=== PATIENT | female | born 1985 | race Caucasian/White ===

== ENCOUNTER → 2016-10-13 | Outpatient (CLI) | payer SELFPAY ==
--- NOTE | 2016-10-13 15:15 | RADIOLOGY REPORT (SQ) ---
EXAM DESCRIPTION: U/S OB 14+ TRNABD 1GES W/O DOP COMPLETED DATE/TIME: 10/13/2016 2:28 pm REASON FOR STUDY: ENCOUNTER FOR SUPERVISION OF OTHER NORMAL , SECOND TRIMESTER Z34.82 ENCO UNTER FOR SUPRVSN OF NORMAL , SECOND TRI COMPARISON: None. TECHNIQUE: Static and Dynamic grayscale imaging performed of gravid uterus using transabdominal appr oach. Additional selected color Doppler and spectral images recorded. All stored on PACS. LIMITATIONS: None. FINDINGS: EGA: 15 weeks 2 days ANNITA: 04/04/2017 EFW: Not calculated PERCENTILE: Not applicable. Fetus less than or equal to 20 weeks gestation. LVP: 3.3 cm PLACENTA: Anterior GRADE: I PRESENTATION: Cephalic. ANATOMY: HEART RATE: 153 beats per minute. FOUR CHAMBER HEART: Visualized. THREE VESSEL CORD: Yes. CORD INSERTION: Visualized. KIDNEYS AND BLADDER: Visualized. Appear normal. STOMACH: stomach not seen. SPINE: Normal as visualized. BRAIN AND LATERAL VENTRICLES: Visualized. Appear normal. OTHER: No other significant finding. MATERNAL ADNEXA: Maternal ovaries not visualized. CERVICAL LENGTH: 3.5 cm Closed. OTHER: No other significant finding. IMPRESSION: There is a live intrauterine gestation of 15 weeks 2 days with an estimated date of deli very of 04/04/2017. anatomy is normal. The stomach was not seen. Trimester of : Second trimester - 13 weeks 1 day to 27 weeks 6 days. TECHNICAL DOCUMENTATION: JOB ID: [id number] [employer]- All Rights Reserved
== END ==
LOC: RAD 12:50
PROVIDERS: ATTEND Nurse Practitioner Women's Health
DX: Z34.82 Encounter for supervision of other normal pregnancy, second trimester (principal)
CPT/HCPCS: 76805

== ENCOUNTER 2017-03-17 09:26 | Outpatient (CLI) | payer MEDICAID ==
[2017-03-17 10:16] LABS: APPEARANCE,URINE SLIGHTLY-CLOUDY; BILIRUBIN,URINE NEGATIVE (NEGATIVE); COLOR,URINE YELLOW; GLUCOSE, URINE NEGATIVE (NEGATIVE); KETONES,URINE NEGATIVE (NEGATIVE); LEUKOCYTE ESTERASE,URINE SMALL (NEGATIVE); NITRITE,URINE NEGATIVE (NEGATIVE); PROTEIN,URINE NEGATIVE (NEGATIVE); URINE SPECIFIC GRAVITY 1.003; UROBILINOGEN,URINE NEGATIVE mg/dL (<2.0)
[2017-03-17 10:16] LABS: AMNISURE (ROM) NEGATIVE (NEGATIVE)
[2017-03-17 10:37] LABS: URINE AMPHETAMINES SCREEN NEGATIVE; URINE BARBITURATES SCREEN NEGATIVE; URINE BENZODIAZEPINES SCREEN NEGATIVE; URINE COCAINE SCREEN NEGATIVE; URINE MARIJUANA (THC) SCREEN NEGATIVE; URINE METHADONE SCREEN NEGATIVE; URINE PHENCYCLIDINE SCREEN NEGATIVE
--- NOTE | 2017-03-17 10:55 | Non Stress Test Report ---
Non Stress Test Datetime Report Generated by CPN: 03/17/2017 10:55 DEMOGRAPHIC EGA NST: 37.0 INDICATION Indication for Study: Ordered by Provider; Other Indication for Study (NST) Other: LABOR CHECK MONITORING Monitor Explained: Monitor Explained; Test Explained; Patient Verbalized Understanding Time on Monitor: 03/17/2017 09:53 Time off Monitor: 03/17/2017 10:35 NST Duration: 42 NST INTERVENTIONS NST Interventions: PO Hydration; Reposition Patient Physician Notified NST: P PARDO, CNM BABY A: [id number] BABY A Movement : Present Contraction Frequency : NONE FHR Baseline : 130 Accelerations : 15X15 Decelerations : None Variability : Moderate 6-25bpm NST Review: Meets Criteria for Reactive NST NST Review and Verified By : AALIYAH Gallagher Results: Reactive NST REPORT Report Trigger: Send Report
== END 2017-03-17 10:42 | disposition home or self-care (01) ==
LOC: LC 09:26
PROVIDERS: ATTEND Obstetrics & Gynecology
PROC: 4A1HXCZ Monitoring of Products of Conception, Cardiac Rate, External Approach (ICD-10-PCS; principal; 2017-03-17)
DX: Z36.89 Encounter for other specified antenatal screening (principal); Z3A.37 37 weeks gestation of pregnancy
CPT/HCPCS: 59025; 84112; 81005; 80307; Q0114

== ENCOUNTER 2017-03-31 09:29 | Inpatient (IN) | payer MEDICAID ==
[2017-03-31 10:00] LABS: APPEARANCE,URINE CLEAR; BILIRUBIN,URINE NEGATIVE (NEGATIVE); COLOR,URINE STRAW; GLUCOSE, URINE NEGATIVE (NEGATIVE); KETONES,URINE NEGATIVE (NEGATIVE); LEUKOCYTE ESTERASE,URINE NEGATIVE (NEGATIVE); NITRITE,URINE NEGATIVE (NEGATIVE); PROTEIN,URINE NEGATIVE (NEGATIVE); URINE SPECIFIC GRAVITY 1.001; UROBILINOGEN,URINE NEGATIVE mg/dL (<2.0)
[2017-03-31 10:23] LABS: UR PRO/CREAT RATIO RESULT 1.1 mg/mg (0.0-0.2); URINE CREATININE 14.9 mg/dL (16-327); URINE PROTEIN 15.9 mg/dL (<12)
[2017-03-31 10:27] LABS: URINE AMPHETAMINES SCREEN NEGATIVE; URINE BARBITURATES SCREEN NEGATIVE; URINE BENZODIAZEPINES SCREEN NEGATIVE; URINE COCAINE SCREEN NEGATIVE; URINE MARIJUANA (THC) SCREEN NEGATIVE; URINE METHADONE SCREEN NEGATIVE; URINE PHENCYCLIDINE SCREEN NEGATIVE
[2017-03-31 10:54] LABS: ABSOLUTE EOSINOPHILS # (AUTO) 0.2 10^3/uL (0.0-0.6); ABSOLUTE LYMPHOCYTES (AUTO) 2.2 10^3/uL (0.5-4.7); ABSOLUTE MONOCYTES (AUTO) 0.9 10^3/uL (0.1-1.4); ABSOLUTE NEUT (AUTO) 7.8 10^3/uL (1.7-8.2); BASOPHILS % (AUTO) 0.2 % (0-2); EOSINOPHILS % (AUTO) 1.6 % (0-6); HEMATOCRIT 33.6 % (36.0-47.0); HEMOGLOBIN 11.7 g/dL (12.0-15.5); LYMPHOCYTES % (AUTO) 19.9 % (13-45); MEAN CORPUSCULAR HEMOGLOBIN 31.3 pg (27.0-33.4); MEAN CORPUSCULAR HGB CONC 34.7 g/dL (32.0-36.0); MEAN CORPUSCULAR VOLUME 90 fl (80-97); MONOCYTES % (AUTO) 8.1 % (3-13); PLATELET COUNT 146 10^3/uL (150-450); RED BLOOD COUNT 3.72 10^6/uL (3.72-5.28); RED CELL DISTRIBUTION WIDTH 13.3 % (11.5-14.0); SEGMENTED NEUTROPHILS % (AUTO) 70.2 % (42-78); TOTAL CELLS COUNTED % (AUTO) 100 %; WHITE BLOOD COUNT 11.2 10^3/uL (4.0-10.5)
[2017-03-31 11:13] LABS: ALANINE AMINOTRANSFERASE 34 U/L (9-52); ALBUMIN 3.7 g/dL (3.5-5.0); ALKALINE PHOSPHATASE 132 U/L (38-126); ANION GAP 10 (5-19); ASPARTATE AMINO TRANSFERASE 22 U/L (14-36); BILIRUBIN,DIRECT 0.4 mg/dL (0.0-0.4); BILIRUBIN,TOTAL 0.4 mg/dL (0.2-1.3); BLOOD UREA NITROGEN 6 mg/dL (7-20); CALCIUM 9.4 mg/dL (8.4-10.2); CARBON DIOXIDE 20 mmol/L (22-30); CHLORIDE 106 mmol/L (98-107); GLUCOSE 78 mg/dL (75-110); LDH 312 U/L (313-618); POTASSIUM 3.9 mmol/L (3.6-5.0); SODIUM 135.7 mmol/L (137-145); TOTAL PROTEIN 6.5 g/dL (6.3-8.2); URIC ACID 4.1 mg/dL (2.5-6.2)
[2017-03-31] MEDS ORDERED: RINGERS SOLUTION,LACTATED 1,000 ML IV ONE (11:44)
[2017-03-31] MEDS ORDERED: OXYTOCIN/NORMAL SALINE 20 UNIT/1,000 ML RTUINJ IV PRN ×2 (11:46→20:48)
[2017-03-31] MEDS ORDERED: LIDOCAINE 1% INJ-PF (10 MG/ML) 30 ML SDV ONE (12:00)
[2017-03-31] MEDS ORDERED: MISOPROSTOL 0.2 MG TABLET ONE (12:00)
[2017-03-31] MEDS ORDERED: OXYTOCIN/NORMAL SALINE 20 UNIT/1,000 ML RTUINJ ONE ×2 (12:01→23:10)
[2017-03-31] MEDS: RINGERS SOLUTION,LACTATED 1,000 ML IV PRN ×2 (12:29→13:29)
[2017-03-31] MEDS ORDERED: FENTANYL CITRATE INJ/PF 100 MCG/2 ML AMPUL ONE (15:50)
[2017-03-31] MEDS ORDERED: EPHEDRINE SULFATE INJ 50 MG/1 ML AMPULE ONE (15:50)
[2017-03-31] MEDS ORDERED: FENTANYL/BUPIVACAINE/NS/PF 200 MCG/100 ML RTUINJ EPI ONE (15:50)
[2017-03-31] MEDS ORDERED: PHENYLEPHRINE HCL INJ/PF 10 MG/1 ML SDV ONE (15:50)
[2017-03-31] MEDS ORDERED: BUPIVACAINE HCL 0.25 % INJ/PF (2.5 MG/1 ML) 30 ML VIAL ONE (15:51)
--- NOTE | 2017-03-31 15:57 | L&D Progress Notes ---
PROGRESS NOTES Datetime Report Generated by CPN: 03/31/2017 15:57 PROGRESS NOTE Impression: Reassuring Heart Rate Procedures: Sterile Vag Exam Plan: Induction Plan Other: blunt bulb removed. Informed Consent Obtained: Vaginal Delivery Vital Signs : Reviewed Comment: pt feeling the ctx, breathing and coping well, desires epidural cook cath was sitting in vagina, removed Pt may have epdiural, then will AROM Anticipate VAGINAL EXAM Dilatation: 6 Dilatation: 1 Effacement: 60 Effacement: 25 Station: -1 Station: -2 Contractions: 2-4 Contractions: rare MEMBRANES Membranes: Intact Membranes: Intact FETUS A FHR - Baseline: 125 Monitoring: External US Variability: Moderate 6-25bpm Accelerations: 15X15 Decelerations: None FHR Category: Category I Estimated Weight (gm): 3400 Presentation: Vertex SIGNATURE SIGNATURE: [id number];[id number] SIGNATURE: [id number] Assignment: Irena Love MD Signature: with User ID: [email or web address] : with User ID: [email or web address]
--- NOTE | 2017-03-31 17:12 | L&D Progress Notes ---
PROGRESS NOTES Datetime Report Generated by CPN: 03/31/2017 17:11 PROGRESS NOTE Impression: Normal Progression of Labor Procedures: Artificial ROM Plan: Induction Informed Consent Obtained: Vaginal Delivery Vital Signs : Reviewed Comment: Pt comfortable with epidural AROM, small, clear Anticipate VAGINAL EXAM Dilatation: 7 Effacement: 80 Station: -1 Contractions: every 2 min FETUS A FHR - Baseline: 150 Monitoring: External US Variability: Moderate 6-25bpm Accelerations: 15X15 Decelerations: Variable FHR Category: Category I FETUS C SIGNATURE: [id number];[id number] Assignment: Irena Love MD Signature: with User ID: [email or web address] : with User ID: [email or web address]
[2017-03-31] MEDS ORDERED: MEASLES,MUMPS&RUBELLA VACC/PF 0.5 ML VIAL SUBCUT PRN (20:48)
[2017-03-31] MEDS ORDERED: PROMETHAZINE HCL 25 MG SUPP.RECT PR PRN (20:48)
[2017-03-31] MEDS ORDERED: ZOLPIDEM TARTRATE 5 MG TABLET PO PRN (20:48)
[2017-03-31] MEDS ORDERED: PROMETHAZINE HCL 25 MG TABLET PO PRN (20:48)
[2017-03-31] MEDS ORDERED: PSEUDOEPHEDRINE HCL 30 MG TABLET PO PRN (20:48)
[2017-03-31] MEDS ORDERED: ACETAMINOPHEN 325 MG TABLET PO PRN (20:48)
[2017-03-31] MEDS ORDERED: DIPH/PERTUSS(ACELL)/TETANUS VAC/PF 0.5 ML SYR (>=10YO) IM PRN (20:48)
[2017-03-31] MEDS ORDERED: BENZOCAINE/MENTHOL AEROSOL SPRAY 56 ML TOP PRN (20:48)
[2017-03-31] MEDS ORDERED: MISOPROSTOL 0.2 MG TABLET PR ONE (20:48)
[2017-03-31] MEDS ORDERED: NA PHOS,M-B/NA PHOS,DI-BA (ADULT) 133 ML ENEMA PR PRN (20:48)
[2017-03-31] MEDS ORDERED: DIPHENHYDRAMINE HCL 25 MG CAPSULE PO PRN (20:48)
[2017-03-31] MEDS ORDERED: ACETAMINOPHEN WITH CODEINE #3 TABLET PO PRN ×2 (20:48)
[2017-03-31] MEDS ORDERED: MAGNESIUM HYDROXIDE SUSP 30 ML UDCUP PO PRN (20:48)
[2017-03-31] MEDS ORDERED: PROMETHAZINE HCL INJ 25 MG/1 ML VIAL IV PRN (20:48)
[2017-03-31] MEDS ORDERED: DIBUCAINE 1% OINTMENT 28 GM TP PRN (20:48)
[2017-03-31] MEDS ORDERED: IBUPROFEN 800 MG TABLET ONE (20:58)
--- NOTE | 2017-03-31 22:44 | Warning Signs in Babies ---
VOD Warning Signs Datetime Report Generated by [facility]: 03/31/2017 22:44 VOD#608 -Warning Signs in Babies: Viewed with Parent(s)/Family (03/17/2017 10:17:Alla Miller RN)
[2017-03-31] MEDS ORDERED: CARBOPROST TROMETHAMINE INJ 250 MCG/1 ML AMPULE IM ONE (23:08)
[2017-03-31] MEDS ORDERED: DIPHENOXYLATE HCL/ATROP SULF 2.5-0.025 MG TABLET PO PRN (23:08)
[2017-03-31] MEDS ORDERED: DIPHENOXYLATE HCL/ATROP SULF 2.5-0.025 MG TABLET PO ONE (23:08)
[2017-03-31] MEDS ORDERED: OXYTOCIN 10 UNIT/ML VIAL ONE (23:10)
[2017-03-31] MEDS: FAMOTIDINE 20 MG TABLET PO SCH (23:18)
[2017-03-31] MEDS ORDERED: CARBOPROST TROMETHAMINE INJ 250 MCG/1 ML AMPULE ONE (23:47)
[2017-03-31] MEDS ORDERED: LOPERAMIDE HCL 2 MG CAPSULE ONE (23:47)
[2017-03-31] MEDS ORDERED: LOPERAMIDE HCL 2 MG CAPSULE PO ONE (23:48)
[2017-03-31] MEDS ORDERED: LOPERAMIDE HCL 2 MG CAPSULE PO PRN (23:48)
--- NOTE | 2017-04-01 00:29 | Admission Physical ---
Datetime Report Generated by CPN: 04/01/2017 00:28 CURRENT ADMISSION Hx Assessment: The History has been Reviewed and is Current Chief Complaint: Signs/Symptoms Gestational HTN Indication for Induction: PreEclampsia Indication for Induction: Term, Intrauterine ; No Active Labor; Intact Membranes; Induction of Labor Admit Plan: Admit to Unit; Initiate Labor Induction Protocol ALLERGIES Medication Allergies: No Medication Allergies: No Known Allergies (03/31/2017) Medication Allergies: No Known Allergies (03/17/2017) Latex: No Latex Allergies OBSTETRICAL HISTORY EDC: 04/07/2017 00:00 : 4 Para: 3 Term: 3 : 0 SAB: 0 IAB: 0 Ectopic: 0 Livin Cesareans: 0 VBACs: 0 Multiple Births: 0 Gestational Diabetes: No Rh Sensitization: No Incompetent Cervix: No DEWAYNE: No Infertility: No ART Treatment: No Uterine Anomaly: No IUGR: No Hx Previous C/S: No Macrosomia: No Hx Loss/Stillborn: No PIH: Yes Hx : No Placenta Previa/Abruption: No Depression/PP Depression: No PTL/PROM: No Post Hemorrhage: No Current Procedures: Ultrasound; NST Obstetrical History Comments: G1: 2007 G2: 2010 G3: 2012 G4: current (pre-e) SEE RECORDS Alcohol: No Marijuana : No Cocaine: No Other Illicit Drugs: No Cigarettes: Never Smoker. [id number] MEDICAL HISTORY Diabetes: No Blood Transfusion: No Pulmonary Disease (Asthma, TB): No Breast Disease: No Hypertension: Yes Algebraist Surgery: No Heart Disease: No Hosp/Surgery: Yes Autoimmune Disorder: No Anesthetic Complications: No Kidney Disease: No Abnormal Pap Smear: No Neuro/Epilepsy: No Psychiatric Disorders: Yes Other Medical Diseases: No Hepatitis/Liver Disease: No Significant Family History: No Varicosities/Phlebitis: No Trauma/Violence : No Thyroid Dysfunction: Yes Medical History Comments: Questionable hyperthyroid (no medications), depression (not medicated), surgery on vagina after 2nd delivery to fix stitches. Preeclampsia this INFECTIOUS HISTORY Gonorrhea: No Genital Herpes: No Chlamydia: No Tuberculosis: No Syphilis: No Hepatitis: No HIV/AIDS Exposure: No Rash or Viral Illness: No HPV: No Infectious History Comments: denies PHYSICAL EXAM General: Normal HEENT: Normal Neurologic: Normal Thyroid: Deferred Heart: Normal Lungs: Normal Breast: Normal Back: Normal Abdomen: Normal Genitourinary Exam: Normal Extremities: Normal DTRs: Normal Pelvic Type: Adequate Physical Exam Comments: pelvis proven 8 lbs 7 oz Vital Signs: Reviewed VAGINAL EXAM Dilatation: 7 Dilatation: 6 Dilatation: 1 Effacement: 80 Effacement: 60 Effacement: 25 Station: -1 Station: -1 Station: -2 Contraction Comments: every 2 min Contraction Comments: 2-4 Contraction Comments: rare MEMBRANES Membranes: Intact Membranes: Intact FETUS A EGA: 39.0 Monitoring: External US FHR- Baseline: 125 Variability: Moderate 6-25bpm Accelerations: 15X15 Decelerations: None Estimated Weight (gm): 3400 Presentation: Vertex Admit Comment: Admit to L _ D Induction of labor for pre-eclampsia Plan for blunt bulb and pitocin GBS negative late to care, but only complicated by a few boarderline bps 140/90 Hx: hyperthyroid in the past, no meds, thyroid studies normal in the PLANS FOR LABOR AND DELIVERY Labor and Delivery: None Feeding Preference: Breast Benefit of Breast Feed Discussed: Yes Circumcision: Yes INFORMED CONSENT Informed Consent Obtained: Vaginal Delivery Informed Consent Obtained: Vaginal Delivery Assignment: Irena Love MD Signature: with User ID: [email or web address] : with User ID: [email or web address]
--- NOTE | 2017-04-01 00:58 | Delivery Summary ---
Del Sum A-C Datetime Report Generated by CPN: 04/01/2017 00:57 DELIVERY PERSONNEL DELIVERY PERSONNEL: [id number] Delivery Doctor:: Irena Love MD Labor and Delivery Nurse:: Alla Miller RNoutpatient interviewing clerk Nurse:: An Hall RN Home Lending Officer/RN TRANSPLANT: Ingrid Green, ST MATERNAL INFORMATION Delivery Anesthesia: Epidural Medications After Delivery: Pitocin Drip 20 Units/1000ml NSS; Other-Please Comment Meds After Delivery Comment: cytotec 1000 mcg per rectum by provider, hemabate 250 mcg IM, 10 units pitocin IM, 2nd bag of 20 units of pitocin in 1000 ml NSS Estimated Blood Loss (ml): 300 Maternal Complications: Other Other Maternal Complications: preeclampsia Provider Comments: VMI delivered KEILA presentation. No nuchal cord but left foot cord. Shoulders and body delivered without difficulty. Cord doubly clamped and cut and to maternal abdomen for NRP. Placenta delivered intact spontaneously. FF at U then noted atony with increased bleeding and Misoprostol 1000mcg VA given. 1st degree perineal laceration repaired in usual fashion. Good hemostasis. Mother and baby stable upon provider leaving the room. LABOR SUMMARY EDC: 04/07/2017 00:00 No. Babies in Womb: 1 Attempted: No Labor Anesthesia: Epidural LABOR INFORMATION Reason for Induction: Pre-Eclampsia Onset of Labor: 03/31/2017 15:45 Complete Dilatation: 03/31/2017 20:13 Cervical Ripening Agents: Chow Balloon Other Ripening Agents: Cooks Catheter Oxytocin: Induction Group B Beta Strep: negative Antibiotics # of Doses: N/A Steroids Given: None Reason Steroids Not Administered: Not Applicable MEMBRANES Membranes Rupture Method: Artificial Rupture of Membranes: 03/31/2017 17:01 Length of Rupture (hr): 3.38 Amniotic Fluid Color: Clear Amniotic Fluid Amount: Moderate Amniotic Fluid Odor: Normal STAGES OF LABOR Stage 1 hr: 4 Stage 1 min: 28 Stage 2 hr: 0 Stage 2 min: 11 Stage 3 hr: 0 Stage 3 min: 4 Total Time in Labor hr: 4 Total Time in Labor min: 43 VAGINAL DELIVERY Episiotomy: None Laceration #1: Perineal Laceration Extension #1: First Degree Laceration Repair: Yes Laceration Repair Note: 1st degree perineal laeration repaired in usual fashion Sponge Count Correct: Yes Sharps Count Correct: Yes CSECTION DELIVERY Primary Indication: N/A Secondary Indication: N/A CSection Incidence: N/A Labor: N/A Elective: N/A CSection Incision: N/A BABY A INFORMATION Infant Delivery Date/Time: 03/31/2017 20:24 Method of Delivery: Vaginal Born in Route : No : N/A Forceps: N/A Vacuum Extraction: N/A Shoulder Dystocia : No PRESENTATION/POSITION BABY A Presentation: Cephalic Cephalic Presentation: Vertex Vertex Position: Right Occipital Anterior Breech Presentation: N/A PLACENTA INFORMATION BABY A Placenta Delivery Time : 03/31/2017 20:28 Placenta Method of Delivery: Spontaneous Placenta Status: Delivered SCORES BABY A Heart Rate 1 min: >100 bpm Resp Effort 1 min: Good Cry Reflex Irritability 1 min: Cough or Sneeze or Pulls Away Muscle Tone 1 min: Active Motion Color 1 min: Blue/Pale Resuscitation Effort 1 min: Tactile Stimulation SCORE 1 MIN: 8 Heart Rate 5 min: >100 bpm Resp Effort 5 min: Good Cry Reflex Irritability 5 min: Cough or Sneeze or Pulls Away Muscle Tone 5 min: Active Motion Color 5 min: Body [place], Extremities Blue Resuscitation Effort 5 min: Tactile Stimulation SCORE 5 MIN: 9 INFANT INFORMATION BABY A Gestational Age at Delivery: 39.0 Gestational Status: Full Term- 39- 40.6 Weeks Infant Outcome : Liveborn Condition : Stable Infant Sex: Male IDENTIFICATION BABY A Verification Date/Time: 03/31/2017 20:28 ID Band Number: [id number] Mother's Name Verified: Yes Infant RN Verifying : rn ghada Additional Verifying Personnel: [employer] WEIGHT/LENGTH BABY A Birthweight (gm): 3860 Infant Weight (lb): 8 Infant Weight (oz): 8 Length (in): 21.00 Infant Length (cm): 53.34 CORD INFORMATION BABY A No. Cord Vessels: 3 Nuchal Cord : N/A Cord Blood Taken: Yes-For Eval (Mom's Blood Type - or O+) Suction: Mouth ASSESSMENT BABY A Infant Complications: None Physical Findings at Delivery: Within Normal Limits Physical Findings- Other: See full nursery assessment. Respirations: Appears Normal Skin to Skin: Yes Information Clerk Brokerage/ALS Called : No Infant Care By: K. Rafael, RN Transferred To: Remains with Mother BABY B INFORMATION : N/A SIGNATURES Signature: with User ID: [email or web address]
[2017-04-01] MEDS: IBUPROFEN 800 MG TABLET PO SCH ×3 (05:30→21:23)
[2017-04-01] MEDS: GLYCERIN/WITCH HAZEL LEAF 1 EACH MED..PAD TP PRN ×2 (05:34→21:22)
[2017-04-01] MEDS ORDERED: DIPHENHYDRAMINE HCL 50 MG CAPSULE PO ONE (07:17)
[2017-04-01] MEDS ORDERED: FAMOTIDINE 20 MG TABLET PO ONE (07:17)
[2017-04-01 08:11] LABS: HEMATOCRIT 31.4 % (36.0-47.0); HEMOGLOBIN 10.9 g/dL (12.0-15.5); MEAN CORPUSCULAR HEMOGLOBIN 32.1 pg (27.0-33.4); MEAN CORPUSCULAR HGB CONC 34.6 g/dL (32.0-36.0); MEAN CORPUSCULAR VOLUME 93 fl (80-97); PLATELET COUNT 134 10^3/uL (150-450); RED BLOOD COUNT 3.38 10^6/uL (3.72-5.28); RED CELL DISTRIBUTION WIDTH 13.6 % (11.5-14.0); WHITE BLOOD COUNT 15.1 10^3/uL (4.0-10.5)
--- NOTE | 2017-04-01 08:41 | PDOC PROGRESS REPORT ---
Subjective-OB Progress Note for:: 04/01/17 Subjective: pp day #2 lochia is stable, pain well controlled, voiding without difficulty. Physical Exam (OB) Vital Signs: Temp Pulse Resp BP Pulse Ox 97.9 F 85 18 136/81 H 99 04/01/17 05:28 04/01/17 05:28 04/01/17 05:28 04/01/17 05:28 04/01/17 05:28 Intake & Output 03/31/17 04/01/17 04/02/17 06:59 06:59 06:59 Intake Total 400 Balance 400 Weight 81.9 kg - PIH/Pre-Eclampsia DTR's: 2 + Clonus: Negative Headache: Absent Epigastric Pain: No Visual Changes: No - Lochia Lochia Amount: Small 10-25 ml Lochia Color: Rubra/Red - Abdomen Description: Tender, Soft, Round Hernia Present: No Fundal Description: Firm, Midline Fundal Height: u/u - u/2 Objective-Diagnostic Laboratory: 04/01/17 07:14 03/31/17 10:29 03/31/17 03/31/17 03/31/17 09:35 10:29 10:29 WBC 11.2 H RBC 3.72 Hgb 11.7 L Hct 33.6 L MCV 90 MCH 31.3 MCHC 34.7 RDW 13.3 Plt Count 146 L Seg Neutrophils % 70.2 Lymphocytes % 19.9 Monocytes % 8.1 Eosinophils % 1.6 Basophils % 0.2 Absolute Neutrophils 7.8 Absolute Lymphocytes 2.2 Absolute Monocytes 0.9 Absolute Eosinophils 0.2 Absolute Basophils 0.0 Sodium 135.7 L Potassium 3.9 Chloride 106 Carbon Dioxide 20 L Anion Gap 10 BUN 6 L Creatinine 0.55 Est GFR ( Amer) > 60 Est GFR (Non-Af Amer) > 60 Glucose 78 Uric Acid 4.1 Calcium 9.4 Total Bilirubin 0.4 AST 22 ALT 34 Alkaline Phosphatase 132 H Total Protein 6.5 Albumin 3.7 Urine Color STRAW Urine Appearance CLEAR Urine pH 7.0 Ur Specific Hunter 1.001 Urine Protein NEGATIVE Urine Glucose (UA) NEGATIVE Urine Ketones NEGATIVE Urine Blood SMALL H Urine Nitrite NEGATIVE Ur Leukocyte Esterase NEGATIVE Urine WBC (Auto) 1 Urine RBC (Auto) 0 Blood Type Antibody Screen 02/16/18 02/17/18 10:29 07:14 WBC 15.1 H RBC 3.38 L Hgb 10.9 L Hct 31.4 L MCV 93 MCH 32.1 MCHC 34.6 RDW 13.6 Plt Count 134 L Seg Neutrophils % Lymphocytes % Monocytes % Eosinophils % Basophils % Absolute Neutrophils Absolute Lymphocytes Absolute Monocytes Absolute Eosinophils Absolute Basophils Sodium Potassium Chloride Carbon Dioxide Anion Gap BUN Creatinine Est GFR ( Amer) Est GFR (Non-Af Amer) Glucose Uric Acid Calcium Total Bilirubin AST ALT Alkaline Phosphatase Total Protein Albumin Urine Color Urine Appearance Urine pH Ur Specific Hunter Urine Protein Urine Glucose (UA) Urine Ketones Urine Blood Urine Nitrite Ur Leukocyte Esterase Urine WBC (Auto) Urine RBC (Auto) Blood Type O POSITIVE Antibody Screen NEGATIVE Assessment and Plan(PN) - Assessment and Plan (1) Acute blood loss anemia Is this a current diagnosis for this admission?: Yes Plan: ferrous sulfate increase dietary iron (2) First degree laceration of perineum, delivered, current hospitalization Is this a current diagnosis for this admission?: Yes Plan: routine pp care (3) Gestational hypertension Qualifiers: Trimester: third trimester Qualified Code(s): O13.3 - Gestational [ -induced] hypertension without significant proteinuria, third trimester Is this a current diagnosis for this admission?: Yes Plan: monitor bp 1 week follow up (4) hemorrhage, delivered, current hospitalization Is this a current diagnosis for this admission?: Yes Plan: monitor blood loss (5) Vaginal delivery Is this a current diagnosis for this admission?: Yes Plan: routine pp care - Time Spent with Patient Time with patient: Less than 15 minutes Critical Time spent with patient: Less than 15 minutes Medications reviewed and adjusted accordingly: Yes - Disposition Anticipated Discharge: Home Within: within 24 hours
[2017-04-01] MEDS: FERROUS SULFATE 325 MG TABLET PO SCH ×2 (09:56→17:02)
[2017-04-01] MEDS: PRENATAL VITAMIN W DHA CAPSULE PO SCH (09:56)
[2017-04-01] MEDS: FAMOTIDINE 20 MG TABLET PO SCH ×2 (09:56→21:24)
[2017-04-01] MEDS: DOCUSATE SODIUM 100 MG CAPSULE PO SCH ×2 (09:57→17:02)
[2017-04-01] MEDS: SENNOSIDES/DOCUSATE 8.6-50 MG 1 EACH TABLET PO SCH (09:57)
[2017-04-02] MEDS: IBUPROFEN 800 MG TABLET PO SCH (05:57)
--- NOTE | 2017-04-02 08:48 | PDOC DISCHARGE SUMMARY ---
Addendum entered and electronically signed by MAYE ANTONIO MD 04/02/17 09:35 : Original Note: <TO VASQUEZ - Last Filed: 04/02/17 08:47> Final Diagnosis Discharge Date: 04/02/17 - Final Diagnosis (1) Acute blood loss anemia Is this a current diagnosis for this admission?: Yes (2) First degree laceration of perineum, delivered, current hospitalization Is this a current diagnosis for this admission?: Yes (3) Gestational hypertension Is this a current diagnosis for this admission?: Yes (4) hemorrhage, delivered, current hospitalization Is this a current diagnosis for this admission?: Yes (5) Vaginal delivery Is this a current diagnosis for this admission?: Yes Discharge Data - Discharge Medication Prescriptions: Docusate Sodium [Colace 100 mg Capsule] 100 mg PO BID #60 capsule Ferrous Sulfate [Feosol 325 mg Tablet] 325 mg PO BID #60 tablet Ibuprofen [Motrin 800 mg Tablet] 800 mg PO Q8 #60 tablet Home Medications: Vit No.129/Iron/Folic [ One Daily Tablet] 1 tab PO DAILY Docusate Sodium [Colace 100 mg Capsule] 100 mg PO BID #60 capsule 04/02/17 Ferrous Sulfate [Feosol 325 mg Tablet] 325 mg PO BID #60 tablet 04/02/17 Ibuprofen [Motrin 800 mg Tablet] 800 mg PO Q8 #60 tablet 04/02/17 Gestational Age: 39.1 Reason(s) for Admission: Induction of Labor, PIH Procedures: NST Intrapartum Procedure(s): Spontaneous Vaginal Delivery Complication(s): Laceration-Vaginal Laceration-Degree: 1st - Data Baby 1 Male at 1 minute: 8 at 5 minutes: 9 Weight: 3860 kg Home with Mother: Yes Complications: No - Diagnosis Test Laboratory: Temp Pulse Resp BP Pulse Ox 97.8 F 84 16 134/81 H 100 04/02/17 04:53 04/02/17 04:53 04/02/17 04:53 04/02/17 04:53 04/02/17 04:53 03/31/17 03/31/17 04/01/17 09:35 10:29 07:14 RBC 3.72 3.38 L Hgb 11.7 L 10.9 L Hct 33.6 L 31.4 L Urine Opiates Screen NEGATIVE - Discharge information/Instructions Discharge Activity: Activity As Tolerated, Pelvic Rest, No tub bath Discharge Diet: Regular Disposition: HOME, SELF-CARE Follow up with: [facility] in: 1, Weeks - bp check monday <PACOMAYE - Last Filed: 04/02/17 09:34> Final Diagnosis - Final Diagnosis (1) Hypertension in delivered Is this a current diagnosis for this admission?: Yes Discharge Data - Diagnosis Test Laboratory: Temp Pulse Resp BP Pulse Ox 98.4 F 98 18 128/88 H 100 04/02/17 09:05 04/02/17 09:05 04/02/17 09:05 04/02/17 09:05 04/02/17 09:05 03/31/17 03/31/17 04/01/17 09:35 10:29 07:14 RBC 3.72 3.38 L Hgb 11.7 L 10.9 L Hct 33.6 L 31.4 L Urine Opiates Screen NEGATIVE
[2017-04-02 08:56] VITALS: BP 128/88
[2017-04-02] MEDS: PRENATAL VITAMIN W DHA CAPSULE PO SCH (09:35)
[2017-04-02] MEDS: FERROUS SULFATE 325 MG TABLET PO SCH (09:35)
[2017-04-02] MEDS: SENNOSIDES/DOCUSATE 8.6-50 MG 1 EACH TABLET PO SCH (09:35)
[2017-04-02] MEDS: DOCUSATE SODIUM 100 MG CAPSULE PO SCH (09:36)
[2017-04-02] MEDS: FAMOTIDINE 20 MG TABLET PO SCH (09:38)
== END 2017-04-02 13:00 | disposition home or self-care (01) | DRG 774 ==
LOC: LC 09:29 → LR 11:36 → 2S 04-01 00:27
PROVIDERS: ADMIT Student in an Organized Health Care Education/Training Program; ATTEND Student in an Organized Health Care Education/Training Program
PROC: 10E0XZZ Delivery of Products of Conception, External Approach (ICD-10-PCS; principal; 2017-03-31)
PROC: 0HQ9XZZ Repair Perineum Skin, External Approach (ICD-10-PCS; 2017-03-31)
PROC: 4A1HXCZ Monitoring of Products of Conception, Cardiac Rate, External Approach (ICD-10-PCS; 2017-03-31)
PROC: 0U7C7ZZ Dilation of Cervix, Via Natural or Artificial Opening (ICD-10-PCS; 2017-03-31)
PROC: 10907ZC Drainage of Amniotic Fluid, Therapeutic from Products of Conception, Via Natural or Artificial Opening (ICD-10-PCS; 2017-03-31)
DX: O14.94 Unspecified pre-eclampsia, complicating childbirth (principal); O72.1 Other immediate postpartum hemorrhage; D62 Acute posthemorrhagic anemia; O69.89X0 Labor and delivery complicated by other cord complications, not applicable or unspecified; O70.0 First degree perineal laceration during delivery; O99.02 Anemia complicating childbirth; Z3A.39 39 weeks gestation of pregnancy; Z37.0 Single live birth
CPT/HCPCS: 36415; 80053; 80307; 81001; 82570; 83615; 84156; 84550; 85025; 85027; 86592; 86850; 86900; 86901; 94760; C1726; J2370; J2590; J3010; J3490